=== PATIENT | female | born 1965 | race Caucasian/White ===

== ENCOUNTER → 2017-02-05 | Outpatient (CLI) | payer BC ==
[~2017-02-05] MED LIST: NO ROUTINE MEDS; ONDA4TAB7 PO; TRAM50TA4 PO
[2017-02-05 09:47] LABS: BLOOD, URINE NEGATIVE (NEGATIVE); COLOR,URINE YELLOW (YELLOW); LEUKOCYTE ESTERASE ,URINE NEGATIVE (NEGATIVE); NITRITE,URINE NEGATIVE (NEGATIVE); UROBILINOGEN,URINE 0.2 EU/DL (NORMAL)
[2017-02-05 10:00] LABS: BACTERIA,URINE 3+ (NEGATIVE); MUCUS,URINE PRESENT; RBC,URINE NONE SEEN /HPF (0-3); SQUAMOUS EPITHELIAL CELL,UR 0-5
== END ==
LOC: LAB 09:29
PROVIDERS: ATTEND Family Medicine Sports Medicine
DX: M54.5 Low back pain (principal); R35.0 Frequency of micturition; R30.0 Dysuria
CPT/HCPCS: 81001; 87086